=== PATIENT | male | born 1980 | race Caucasian/White ===

== ENCOUNTER 2022-02-24 10:00 | Emergency (ER) | payer OTHER ==
[2022-02-24 10:10] VITALS: TEMP 98.3
[2022-02-24] MEDS ORDERED: ONDANSETRON 4 MG/2 ML VIAL IVP STA (10:43)
[2022-02-24] MEDS ORDERED: SODIUM CHLORIDE 0.9% 2,000 ML IV STA (10:44)
[2022-02-24] MEDS ORDERED: MORPHINE SULFATE 4 MG/ML SYRINGE IVP STA ×2 (10:54→13:51)
[2022-02-24] MEDS ORDERED: PROCHLORPERAZINE INJ 10 MG/2 ML VIAL IVP STA (12:36)
[2022-02-24 13:06] LABS: Basophils # (A) 0.1 k/uL (0-0.2); Basophils % (A) 0 %; Eosinophils % (A) 0 %; HCT 46.3 % (39.0-53.0); HGB 15.2 gm/dL (13.0-17.5); Lymphocytes # (A) 0.4 k/uL (1.0-4.8); Lymphocytes % (A) 4 %; MCH 30.5 pg (25.0-35.0); MCHC 32.8 g/dL (31.0-37.0); MCV 93.2 fL (80.0-100.0); Mean Platelet Volume 7.6; Monocytes # (A) 0.8 k/uL (0-1.0); Monocytes % (A) 7 %; Neutrophils % (A) 88 %; Platelet Count 267 k/uL (150-450); RBC 4.96 m/uL (4.30-5.90); RDW 12.6 % (11.5-15.5); WBC 11.4 k/uL (3.8-10.6)
[2022-02-24 13:12] LABS: ALT 50 U/L (4-49); AST 47 U/L (17-59); African American GFR (CKD) >90 (>60 ml/min/1.73 sqM); Albumin 4.9 g/dL (3.5-5.0); Alkaline Phosphatase 87 U/L (38-126); Anion Gap 19 mmol/L; Blood Urea Nitrogen 15 mg/dL (9-20); Calcium 10.2 mg/dL (8.4-10.2); Carbon Dioxide 17 mmol/L (22-30); Chloride 101 mmol/L (98-107); Glucose 129 mg/dL (74-99); Lipase 60 U/L (23-300); Non-African American GFR(CKD) >90 (>60 ml/min/1.73 sqM); Potassium 4.1 mmol/L (3.5-5.1); Sodium 137 mmol/L (137-145); Total Bilirubin 0.4 mg/dL (0.2-1.3)
[2022-02-24] MEDS ORDERED: METOCLOPRAMIDE 5 MG/ML 2 ML VIAL IVP STA (13:51)
--- NOTE | 2022-02-24 14:00 | CT ---
EXAMINATION TYPE: CT abdomen pelvis w con DATE OF EXAM: 02/24/2022 COMPARISON: None INDICATION: Periumbilical pain, COVID + DLP: 2962.3 mGycm, Automated exposure control for dose reduction was used. CONTRAST: 100 ml mL of Isovue 300. Study performed without Oral Contrast TECHNIQUE: Axial images were obtained from above the diaphragm to the pubic rami in the axial plane a t 5 mm thick sections. Reconstructed images are reviewed on the computer in the coronal plane. FINDINGS: Limited CT sections are obtained the lung bases. The lung bases are clear. CT ABDOMEN: Liver: Normal Spleen: Normal Pancreas: Normal Adrenal glands: The adrenal glands are normal. Gallbladder: Normal Kidneys: No masses are evident. No hydronephrosis is present. No cysts are present. Delayed images were obtained through the kidneys, which remain unremarkable. Aorta: Normal Inferior vena cava: Normal. CT PELVIS: Subcutaneous tissues normal. Periumbilical region appears unremarkable. No abdominal wall hernias are evident. Loops of bowel within the abdomen and pelvis are normal. Study is without oral contrast limiting bowel evaluation. Appendix: Normal as visualized. Urinary bladder: Normal. Genitourinary structures: Prostate is normal. Few small calcifications are within the prostate. Osseous structures: No suspicious lytic or sclerotic lesions. IMPRESSIONS: 1. No suspicious abnormality to account for periumbilical pain.
--- NOTE | 2022-02-24 15:06 | ED ---
Nausea/Vomiting/Diarrhea HPI - General Chief complaint: Nausea/Vomiting/Diarrhea Stated complaint: covid+ Time Seen by Provider: 02/24/22 10:43 Source: patient Mode of arrival: EMS Limitations: no limitations - History of Present Illness Initial comments: Patient is a 41-year-old male who presents from [facility] with a chief complaint abdominal pain and vomiting. Patient states symptoms started this morning. Patient states that this time he had a fever so COVID-19 testing was performed which was positive. Patient reports several episodes of vomiting since this morning with generalized abdominal pain. Denies chest pain, shortness of breath, diarrhea, burning with urination, blood in the urine. Reports normal bowel movements, last one was this morning, nonbloody. Patient has been at [facility] since February 11. States he tapered off Klonopin about a week before he checked into [facility]. Denies alcohol use. Denies other drug use. - Related Data Home Medications Medication Instructions Recorded Confirmed Acetaminophen Tab [Tylenol] 650 mg PO Q4H PRN 02/24/22 02/24/22 B Complx/C/Folic/Zinc/Cup [facility]/E 1 tab PO DAILY 02/24/22 02/24/22 [Azicqilkfjtq-Hbwh-Xdzyct Tab (Z-Bec)] Calcium/Magnesium/Zinc/Vitamin D3 1 tab PO TID PRN 02/24/22 02/24/22 334/134/5mg Chlorpheniramine Maleate 4 mg PO Q4H PRN 02/24/22 02/24/22 [Chlor-Trimeton] Docusate [Colace] 100 mg PO BID PRN 02/24/22 02/24/22 Ibuprofen [Motrin Ib] 600 mg PO Q6H PRN 02/24/22 02/24/22 Loperamide HCl [Imodium A-D] 4 mg PO QID PRN 02/24/22 02/24/22 Mag Hydrox/Aluminum Hyd/Simeth 30 ml PO Q4H PRN 02/24/22 02/24/22 [Mylanta Maximum Strength Liq] Magnesium Hydroxide [Milk of 2,400 mg PO BID PRN 02/24/22 02/24/22 Magnesia] Methadone HCl [Methadone Intensol] 110 mg PO DAILY 02/24/22 02/24/22 PHENobarbitaL [Luminal] See Taper PO DIRECTED 02/24/22 02/24/22 Thiamine [Vitamin B-1] 100 mg PO DAILY 02/24/22 02/24/22 ondansetron HCL [Zofran] 8 mg PO Q6H PRN 02/24/22 02/24/22 Previous Rx's Medication Instructions Recorded Ondansetron Odt [Zofran Odt] 4 mg PO Q8HR PRN #12 tab 02/24/22 Allergies Allergy/AdvReac Type Severity Reaction Status Date / Time No Known Allergies Allergy Verified 02/24/22 14:27 Review of Systems ROS Statement: Those systems with pertinent positive or pertinent negative responses have been documented in the HPI. ROS Other: All systems not noted in ROS Statement are negative. Past Medical History Past Medical History: No Reported History History of Any Multi-Drug Resistant Organisms: None Reported Past Surgical History: No Surgical Hx Reported Past Psychological History: No Psychological Hx Reported Smoking Status: Current every day smoker Past Alcohol Use History: None Reported Past Drug Use History: Prescription Drug Abuse General Exam Limitations: no limitations General appearance: alert, in no apparent distress Head exam: Present: atraumatic, normocephalic, normal inspection Respiratory exam: Present: normal lung sounds bilaterally. Absent: respiratory distress, wheezes, rales, rhonchi, stridor Cardiovascular Exam: Present: regular rate, normal rhythm, normal heart sounds. Absent: systolic murmur, diastolic murmur, rubs, gallop, clicks GI/Abdominal exam: Present: soft, tenderness (moderate periumblical ), normal bowel sounds. Absent: distended, guarding, rebound, rigid Neurological exam: Present: alert, oriented X3, CN II-XII intact Psychiatric exam: Present: normal affect, normal mood Skin exam: Present: warm, dry, intact, normal color. Absent: rash Course Vital Signs 02/24/22 02/24/22 02/24/22 10:06 13:55 15:30 Temperature 98.3 F Pulse Rate 66 63 59 L Respiratory 16 14 16 Rate Blood Pressure 161/70 145/73 134/64 O2 Sat by Pulse 100 97 100 Oximetry Medical Decision Making - Medical Decision Making This is a 41-year-old male presenting from [facility] for generalized abdominal pain, nausea, vomiting. Upon evaluation patient is vomiting. Afebrile. The abdomen is soft. There is moderate periumbilical tenderness without guarding. Laboratory studies obtained. Patient has mild leukocytosis of 11.4. Lactic acid is elevated at 4.0, likely due to dehydration. CT of abdomen and pelvis with contrast was obtained which is negative for acute process. Nausea and pain controlled. At this time there are no diagnostic studies to explain patient's symptoms. Possibly covid-19 related.Patient will be discharged with Zofran prescription. He will be sent back to [facility]. Patient discharged in stable condition. Dr. Easley my attending. - Lab Data Result diagrams: 02/24/22 11:25 02/24/22 11:25 Lab Results 02/24/22 02/24/22 02/24/22 Range/Units 11:25 11:25 11:25 WBC 11.4 H (3.8-10.6) k/uL RBC 4.96 (4.30-5.90) m/uL Hgb 15.2 (13.0-17.5) gm/dL Hct 46.3 (39.0-53.0) % MCV 93.2 (80.0-100.0) fL MCH 30.5 (25.0-35.0) pg MCHC 32.8 (31.0-37.0) g/dL RDW 12.6 (11.5-15.5) % Plt Count 267 (150-450) k/uL MPV 7.6 Neutrophils % 88 % Lymphocytes % 4 % Monocytes % 7 % Eosinophils % 0 % Basophils % 0 % Neutrophils # 10.0 H (1.3-7.7) k/uL Lymphocytes # 0.4 L (1.0-4.8) k/uL Monocytes # 0.8 (0-1.0) k/uL Eosinophils # 0.0 (0-0.7) k/uL Basophils # 0.1 (0-0.2) k/uL Sodium 137 (137-145) mmol/L Potassium 4.1 (3.5-5.1) mmol/L Chloride 101 (98-107) mmol/L Carbon Dioxide 17 L (22-30) mmol/L Anion Gap 19 mmol/L BUN 15 (9-20) mg/dL Creatinine 0.77 (0.66-1.25) mg/dL Est GFR (CKD-EPI)AfAm >90 (>60 ml/min/1.73 sqM) Est GFR (CKD-EPI)NonAf >90 (>60 ml/min/1.73 sqM) Glucose 129 H (74-99) mg/dL Lactic Ac Sepsis Rflx Plasma Lactic Acid Yehuda 4.0 H* (0.7-2.0) mmol/L Calcium 10.2 (8.4-10.2) mg/dL Total Bilirubin 0.4 (0.2-1.3) mg/dL AST 47 (17-59) U/L ALT 50 H (4-49) U/L Alkaline Phosphatase 87 (38-126) U/L Total Protein 8.0 (6.3-8.2) g/dL Albumin 4.9 (3.5-5.0) g/dL Lipase 60 (23-300) U/L Coronavirus (PCR) (Not Detectd) 02/24/22 02/24/22 Range/Units 11:25 13:17 WBC (3.8-10.6) k/uL RBC (4.30-5.90) m/uL Hgb (13.0-17.5) gm/dL Hct (39.0-53.0) % MCV (80.0-100.0) fL MCH (25.0-35.0) pg MCHC (31.0-37.0) g/dL RDW (11.5-15.5) % Plt Count (150-450) k/uL MPV Neutrophils % % Lymphocytes % % Monocytes % % Eosinophils % % Basophils % % Neutrophils # (1.3-7.7) k/uL Lymphocytes # (1.0-4.8) k/uL Monocytes # (0-1.0) k/uL Eosinophils # (0-0.7) k/uL Basophils # (0-0.2) k/uL Sodium (137-145) mmol/L Potassium (3.5-5.1) mmol/L Chloride (98-107) mmol/L Carbon Dioxide (22-30) mmol/L Anion Gap mmol/L BUN (9-20) mg/dL Creatinine (0.66-1.25) mg/dL Est GFR (CKD-EPI)AfAm (>60 ml/min/1.73 sqM) Est GFR (CKD-EPI)NonAf (>60 ml/min/1.73 sqM) Glucose (74-99) mg/dL Lactic Ac Sepsis Rflx Y Plasma Lactic Acid Yehuda (0.7-2.0) mmol/L Calcium (8.4-10.2) mg/dL Total Bilirubin (0.2-1.3) mg/dL AST (17-59) U/L ALT (4-49) U/L Alkaline Phosphatase (38-126) U/L Total Protein (6.3-8.2) g/dL Albumin (3.5-5.0) g/dL Lipase (23-300) U/L Coronavirus (PCR) Detected A (Not Detectd) Disposition Clinical Impression: Nausea and vomiting, COVID-19, Abdominal pain, Benzodiazepine dependence Disposition: HOME SELF-CARE Condition: Fair Instructions (If sedation given, give patient instructions): Acute Nausea and Vomiting (ED), Acute Nausea and Vomiting (DC) Additional Instructions: Take Zofran as prescribed. Follow-up with primary care provider in one to 2 days. Return to the emergency department if you experience new, concerning, or worsening symptoms Prescriptions: Ondansetron Odt [Zofran Odt] 4 mg PO Q8HR PRN #12 tab PRN Reason: Nausea Is patient prescribed a controlled substance at d/c from ED?: No Referrals: Nonstaff,Physician [Primary Care Provider] - 1-2 days
[2022-02-24 15:32] VITALS: BP 134/64; PULSE 59; RESP 16
== END 2022-02-24 15:32 | disposition home or self-care (01) ==
LOC: EC 10:00 → SUPCPDRO 10:00 → EC 15:32
DX: U07.1 COVID-19 (principal); R10.9 Unspecified abdominal pain; F13.20 Sedative, hypnotic or anxiolytic dependence, uncomplicated; F17.200 Nicotine dependence, unspecified, uncomplicated
CPT/HCPCS: 36415; 80053; 83605; 83690; 85025; 87635; 74177; 99284; 96375; 96376; 96374; 96361; J2270; J0780; J2765; J2405; Q9967